=== PATIENT | male | born 1955 ===

== ENCOUNTER 2017-01-10 06:42 | Day surgery (SDC) | payer OTHER ==
[2017-01-10 07:06] VITALS: BMI 25.0
[2017-01-10] MEDS ORDERED: Propofol 10 mg/ml Inj (20 ML) ONE ×3 (08:25→08:52)
[2017-01-10] MEDS ORDERED: ePHEDrine 50 mg/ml Inj ONE (08:54)
[2017-01-10 09:47] VITALS: PULSE 65; RESP 18; O2SAT 98
[2017-01-10 10:08] VITALS: BP 118/62; TEMP 98
== END 2017-01-10 10:04 | disposition home or self-care (01) ==
LOC: C.ENDO 06:42
PROVIDERS: ATTEND Internal Medicine
DX: R19.5 Other fecal abnormalities (principal); D12.5 Benign neoplasm of sigmoid colon; K64.8 Other hemorrhoids
CPT/HCPCS: 45385; 88305; J2704